=== PATIENT | male | born 1950 | race Caucasian/White ===

== ENCOUNTER → 2016-07-28 | Outpatient (CLI) | payer MEDICARE ==
[~2016-07-28] VITALS: Ht 154.9 cm; Wt 88.0 kg
[~2016-07-28] MED LIST: /CELE20CA PO; AMBI10TA PO; ASPI81TA85 PO; ATOR1TAB18 PO; BACL10TA GT; BYDU1INJ SC; CLOP75TA2 PO; COLA50CA5 PO; FAMO40TA3 PO; FERR325T3 PO; FOLI800C PO; FURO20TA2 PO; GABA-282 PO; HYDR-2808 PO; JANU100T PO; LORA10TA2 PO; LR 1,000 ML IV SCH; MAGN250T9 PO; METF1000 PO; METO-207 PO; NIAC250C13 PO; NICO4LOZ MT; NITR4TASL SL; POTA10CA PO; PROPOFOL 200 MG/20 ML VIAL As Ordered ONE; SIMV20TA2 PO; SPIR25TA2 PO; VITA500C19 PO; ZETI10TA2 PO
--- NOTE | 2016-07-28 10:57 | ROOR ---
Patient Name: Kendall Rojas Procedure Date: 07/28/2016 9:57 AM Date of : 1950 Age: 66 Room: [facility] Gender: Male Note Status: Finalized Procedure: Colonoscopy Indications: Screening for colorectal malignant neoplasm, Last colonoscopy: 2007 Providers: Duy Murdock MD Referring MD: PATRIZIA TILLEY JR, MD Requesting Provider: Medicines: Monitored Anesthesia Care Complications: No immediate complications. Procedure: Pre-Anesthesia Assessment: - Prior to the procedure, a History and Physical was performed, and patient medications and allergies were reviewed. The patient is competent. The risks and benefits of the procedure and the sedation options and risks were discussed with the patient. All questions were answered and informed consent was obtained. Patient identification and proposed procedure were verified by the physician, the nurse and the anesthesiologist in the procedure room. Mental Status Examination: alert and oriented. Airway Examination: normal oropharyngeal airway and neck mobility. CV Examination: regular rate and rhythm. Prophylactic Antibiotics: The patient does not require prophylactic antibiotics. Prior Anticoagulants: The patient has taken no previous anticoagulant or antiplatelet agents. ASA Grade Assessment: III - A patient with severe systemic disease. After reviewing the risks and benefits, the patient was deemed in satisfactory condition to undergo the procedure. The anesthesia plan was to use monitored anesthesia care (MAC). Immediately prior to administration of medications, the patient was re-assessed for adequacy to receive sedatives. The heart rate, respiratory rate, oxygen saturations, blood pressure, adequacy of pulmonary ventilation, and response to care were monitored throughout the procedure. The physical status of the patient was re-assessed after the procedure. The Colonoscope [id number] #[id number] was introduced through the anus and advanced to the cecum, identified by appendiceal orifice and ileocecal valve. The colonoscopy was performed without difficulty. The patient tolerated the procedure well. The quality of the bowel preparation was good. Findings: The perianal and digital rectal examinations were normal. Multiple medium-mouthed diverticula were found in the sigmoid colon and distal descending colon. A 7 mm polyp was found in the proximal transverse colon. The polyp was flat. The polyp was removed with a piecemeal technique using a hot biopsy forceps. Polyp resection was incomplete. The resected tissue was retrieved. Impression: - Diverticulosis in the sigmoid colon and in the distal descending colon. - One 7 mm polyp in the proximal transverse colon, removed piecemeal using a hot biopsy forceps. Incomplete resection. Resected tissue retrieved. Recommendation: - Await pathology results. - Telephone endoscopist for pathology results in 10 days. - Resume previous diet. - Continue present medications. Duy Murdock MD 07/28/2016 10:56:52 AM Number of Addenda: 0 Note Initiated On: 07/28/2016 9:57 AM Estimated Blood Loss: Estimated blood loss: none.
[2016-07-28 11:20] VITALS: BP 147/77
== END | disposition home or self-care (01) ==
LOC: M OPP 09:17
PROVIDERS: ATTEND Surgery
DX: Z12.11 Encounter for screening for malignant neoplasm of colon (principal); D12.3 Benign neoplasm of transverse colon; K57.30 Diverticulosis of large intestine without perforation or abscess without bleeding; R00.8 Other abnormalities of heart beat; I25.10 Atherosclerotic heart disease of native coronary artery without angina pectoris; Z95.810 Presence of automatic (implantable) cardiac defibrillator; I25.2 Old myocardial infarction; I10 Essential (primary) hypertension; E78.5 Hyperlipidemia, unspecified; E11.9 Type 2 diabetes mellitus without complications; M19.90 Unspecified osteoarthritis, unspecified site; M54.9 Dorsalgia, unspecified; Z86.73 Personal history of transient ischemic attack (TIA), and cerebral infarction without residual deficits; Z95.1 Presence of aortocoronary bypass graft; Z88.0 Allergy status to penicillin; Z79.82 Long term (current) use of aspirin; Z79.84 Long term (current) use of oral hypoglycemic drugs; Z79.899 Other long term (current) drug therapy